=== PATIENT | female | born 1950 | race Caucasian/White ===

== ENCOUNTER 2021-03-13 12:14 | Emergency (ER) | payer MEDICARE, MEDICAID ==
[2021-03-13 12:51] VITALS: BP 160/98; PULSE 68
[2021-03-13 13:16] LABS: ANION GAP 15.6 mEq/L (7-13); CHLORIDE,CL 97 mmol/L (98-107); SODIUM,NA 135 mmol/L (136-145)
--- NOTE | 2021-03-13 13:38 | CT ---
PROCEDURE INFORMATION: Exam: CT Pelvis Without Contrast; Skeletal Exam date and time: 03/13/2021 12:59 PM Age: 70 years old Clinical indication: Injury or trauma; Fall; Blunt trauma (contusions or hematomas); Bilateral; Hip; Patient HX: Cancer patient. ; Additional info: Fall, bi lateral hip pain and bruising. TECHNIQUE: Imaging protocol: Computed tomography images of the pelvis without contrast. Exam focused on the skeletal structures. Radiation optimization: All CT scans at this facility use at least one of these dose optimization techniques: automated exposure control; mA and/or kV adjustment per patient size (includes targeted exams where dose is matched to clinical indication); or iterative reconstruction. COMPARISON: No relevant prior studies available. FINDINGS: Bladder: There is severe bladder distention. No bladder wall thickening. No pelvic mass. Vasculature: Distal aortoiliac atherosclerotic calcification. No visualized aneurysm. Bones/joints: There is a right femoral neck Garden stage IV fracture with significant cortical offset. The fracture pattern shows complete lateral displacement of the femoral shaft and proximal migration of the femoral shaft relative to the femoral head. There is varus deformity.Right mild joint space narrowing and periarticular spurs. Left advanced joint space narrowing with bone on bone deformity, acetabular and femoral head erosive changes with sclerosis. No left hip fracture. Mild 3.5 mm anteriorly displaced segment 5 sacral fracture L4-L5 moderate degenerative disc disease with minimal L4 anterolisthesis on L5. Soft tissues: Unremarkable. IMPRESSION: 1. Right stage IV femoral neck fracture with significant cortical offset and proximal migration of the femoral shaft. 2. Mild anteriorly displaced segment 5 sacral fracture. 3. 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 4. L4-L5 moderate degenerative disc disease with minimal L4 anterolisthesis. 5. Severe bladder distention. No pelvic soft tissue abnormality or bladder filling defect.
[2021-03-13] MEDS: Potassium Chloride 10 MEQ in Premix Bag 1 BAG IV SCH ×2 (13:46→14:53)
[2021-03-13] MEDS ORDERED: Ondansetron 4 MG/2 ML SDV IVPUSH ONE (14:26)
[2021-03-13] MEDS ORDERED: fentaNYL 100 MCG/2 ML SDV IVPUSH ONE (14:33)
--- NOTE | 2021-03-13 14:52 | EDM.PDOC ---
Scribed by Nathalie Saldaña 03/13/21 [id number] for Maria T Patel MD ED HPI GENERAL MEDICAL PROBLEM - General Chief Complaint: General Stated Complaint: IN BY [facility] Time Seen by Provider: 03/13/21 12:11 Source of Information: Reports: Patient, EMS, EMS Notes Reviewed, RN, RN Notes Reviewed History Limitations: Reports: No Limitations - History of Present Illness INITIAL COMMENTS - FREE TEXT/NARRATIVE: Patient presents to ED by [facility] after being found down. Patient was found on the floor after an apparent fall. Patient denied any fall. Patient notes that she walked her dog earlier in the morning, then sat on a stool to clean out her closet. She then notes that she did stand up and tripped over the stool. Patient denied any injury initially, but on further questioning did admit to more pain in her hip. Patient has chronic hip pain for which she follows with her PCP. No numbness or tingling in her legs. Patient has not tried walking since the fall. The daughter arrives and states her mother has worsening dementia, most likely secondary to small cell lung. She is scheduled for a head CT in the future, but notes that this behavior is more severe than what they have noticed before as far as being confused. Onset: Today Duration: Constant Location: Reports: Other (hipis) Quality: Reports: Ache Severity: Severe Improves with: Reports: None Worsens with: Reports: None Associated Symptoms: Reports: No Other Symptoms - Related Data Allergies Allergy/AdvReac Type Severity Reaction Status Date / Time No Known Allergies Allergy Verified 03/13/21 11:59 Home Meds: Home Meds Gabapentin [Neurontin] 1 tab PO TID 04/07/16 [History] Levothyroxine 1 tab PO DAILY 04/07/16 [History] Meloxicam 1 tab PO DAILY 04/07/16 [History] Sertraline [Zoloft] 75 mg PO BEDTIME 03/13/21 [History] fentaNYL [Fentanyl] 1 each TD DAILY 03/13/21 [History] traMADol [Ultram] 50 mg PO ASDIRECTED 03/13/21 [History] Past Medical History Endocrine/Metabolic History: Reports: Hyperthyroidism - Infectious Disease History Infectious Disease History: Reports: Measles, Mumps - Past Surgical History Musculoskeletal Surgical History: Reports: Other (See Below) Social & Family History - Family History Family Medical History: No Pertinent Family History ED ROS GENERAL - Review of Systems Review Of Systems: Comprehensive ROS is negative, except as noted in HPI. ED EXAM, GENERAL - Physical Exam Exam: See Below Exam Limited By: Altered Mental Status General Appearance: Alert, No Apparent Distress Eye Exam: Bilateral Eye: Normal Inspection Ears: Normal External Exam, Normal TMs Ear Exam: Bilateral Ear: TM normal Nose: Normal Inspection, No Blood Throat/Mouth: Normal Inspection, Normal Voice, No Airway Compromise Head: Atraumatic, Normocephalic Neck: Normal Inspection, Supple, Non-Tender, Full Range of Motion Respiratory/Chest: No Respiratory Distress, Lungs Clear, Normal Breath Sounds, No Accessory Muscle Use Cardiovascular: Normal Peripheral Pulses, Regular Rate, Rhythm, No Murmur GI/Abdominal: Normal Bowel Sounds, Soft, No Distention (Female) Exam: Deferred Rectal (Female) Exam: Deferred Back Exam: Normal Inspection Extremities: Leg Pain (bilateral hip pain R>L. Pain with internal rotation of the right hip radiating into the groin. Bruising noted over left hip. Pelvis stable. Neurovascularly intact in bilateral lower extremities and feet. ) Neurological: Confused Psychiatric: Normal Affect, Normal Mood Skin Exam: Warm, Dry Course - Vital Signs Last Recorded V/S: Last Vital Signs Temp 97.8 F 03/13/21 12:46 Pulse 68 03/13/21 12:46 Resp 20 03/13/21 12:46 BP 160/98 H 03/13/21 12:46 Pulse Ox 95 03/13/21 12:46 - Orders/Labs/Meds Orders: Active Orders 24 hr Category Date Time Status Urinary Catheter Assessment [RC] ASDIRECTED Care 03/13/21 14:14 Active Urinary Catheter Insertion [Insert Urinary Catheter] [ Care 03/13/21 14:15 Ordered OM.PC] Q24H CULTURE BLOOD [BC] Stat Lab 03/13/21 12:50 Received CULTURE BLOOD [BC] Stat Lab 03/13/21 13:10 Received Potassium Chloride [KCl in Water 10 MEQ/100 ML] 10 meq Med 03/13/21 13:45 Active Premix Bag 1 bag IV Q2H Blood Culture x2 Reflex Set [OM.PC] Stat Oth 03/13/21 12:54 Ordered Medication Orders Potassium Chloride 10 meq/ (Premix) 100 mls @ 100 mls/hr IV Q2H MENG Stop: 03/13/21 20:44 Last Admin: 03/13/21 13:46 Dose: 100 mls/hr Documented by: ANNITA Labs: Laboratory Tests 03/13/21 03/13/21 03/13/21 Range/Units 12:50 12:50 12:50 WBC 13.4 H (5.0-10.0) 10^3/uL RBC 3.94 L (4.2-5.4) 10^6/uL Hgb 13.3 (12.0-16.0) g/dL Hct 37.9 (37.0-47.0) % MCV 96.2 (80-100) fL MCH 33.8 (27.0-34.0) pg MCHC 35.1 H (33.0-35.0) g/dL Plt Count 195 (150-450) 10^3/uL Neut % (Auto) 92.0 H (42.2-75.2) % Lymph % (Auto) 2.7 L (20.5-50.1) % Bucks % (Auto) 5.2 (2-8) % Eos % (Auto) 0.0 L (1.0-3.0) % Baso % (Auto) 0.1 (0.0-1.0) % Sodium 135 L (136-145) mmol/L Potassium 2.6 L (3.5-5.1) mmol/L Chloride 97 L (98-107) mmol/L Carbon Dioxide 25 (21-32) mmol/L Anion Gap 15.6 H (7-13) mEq/L BUN 9 (7-18) mg/dL Creatinine 0.73 (0.55-1.02) mg/dL Est Cr Clr Drug Dosing 57.52 mL/min Estimated GFR (MDRD) > 60 BUN/Creatinine Ratio 12.3 (No establ ref range) Glucose 114 H (70-99) mg/dL Lactic Acid 1.8 (0.4-2.0) mmol/L Calcium 8.3 L (8.5-10.1) mg/dL Total Bilirubin 1.1 H (0.2-1.0) mg/dL AST 128 H (15-37) U/L ALT 52 (14-59) U/L Alkaline Phosphatase 90 (46-116) U/L Total Protein 7.0 (6.4-8.2) g/dL Albumin 3.5 (3.4-5.0) g/dL Globulin 3.5 Albumin/Globulin Ratio 1.0 Urine Color (YELLOW) Urine Appearance (CLEAR) Urine pH (5.0-9.0) Ur Specific [place] (1.005-1.030) Urine Protein (NEGATIVE) Urine Glucose (UA) (NEGATIVE) Urine Ketones (NEGATIVE) Urine Occult Blood (NEGATIVE) Urine Nitrite (NEGATIVE) Urine Bilirubin (NEGATIVE) Urine Urobilinogen (0.2-1.0) mg/dL Ur Leukocyte Esterase (NEGATIVE) Urine RBC /HPF Urine WBC (0-5/HPF) /HPF Ur Epithelial Cells (NOT SEEN) /HPF Amorphous Sediment (NOT SEEN) /HPF Urine Bacteria (0-FEW/HPF) /HPF Urine Mucus (NOT SEEN) /LPF 03/13/21 Range/Units 12:52 WBC (5.0-10.0) 10^3/uL RBC (4.2-5.4) 10^6/uL Hgb (12.0-16.0) g/dL Hct (37.0-47.0) % MCV (80-100) fL MCH (27.0-34.0) pg MCHC (33.0-35.0) g/dL Plt Count (150-450) 10^3/uL Neut % (Auto) (42.2-75.2) % Lymph % (Auto) (20.5-50.1) % Bucks % (Auto) (2-8) % Eos % (Auto) (1.0-3.0) % Baso % (Auto) (0.0-1.0) % Sodium (136-145) mmol/L Potassium (3.5-5.1) mmol/L Chloride (98-107) mmol/L Carbon Dioxide (21-32) mmol/L Anion Gap (7-13) mEq/L BUN (7-18) mg/dL Creatinine (0.55-1.02) mg/dL Est Cr Clr Drug Dosing mL/min Estimated GFR (MDRD) BUN/Creatinine Ratio (No establ ref range) Glucose (70-99) mg/dL Lactic Acid (0.4-2.0) mmol/L Calcium (8.5-10.1) mg/dL Total Bilirubin (0.2-1.0) mg/dL AST (15-37) U/L ALT (14-59) U/L Alkaline Phosphatase (46-116) U/L Total Protein (6.4-8.2) g/dL Albumin (3.4-5.0) g/dL Globulin Albumin/Globulin Ratio Urine Color Yellow (YELLOW) Urine Appearance Clear (CLEAR) Urine pH 7.0 (5.0-9.0) Ur Specific [place] 1.025 (1.005-1.030) Urine Protein 100 H (NEGATIVE) Urine Glucose (UA) Negative (NEGATIVE) Urine Ketones Negative (NEGATIVE) Urine Occult Blood Small H (NEGATIVE) Urine Nitrite Negative (NEGATIVE) Urine Bilirubin Negative (NEGATIVE) Urine Urobilinogen 0.2 (0.2-1.0) mg/dL Ur Leukocyte Esterase Negative (NEGATIVE) Urine RBC 20-30 H /HPF Urine WBC 0-5 (0-5/HPF) /HPF Ur Epithelial Cells Occasional (NOT SEEN) /HPF Amorphous Sediment Occasional (NOT SEEN) /HPF Urine Bacteria Rare (0-FEW/HPF) /HPF Urine Mucus Rare (NOT SEEN) /LPF Meds: Medications Generic Name Dose Route Start Last Admin Trade Name Freq PRN Reason Stop Dose Admin Potassium Chloride 10 meq/ 100 mls @ 100 mls/hr 03/13/21 13:45 03/13/21 13:46 Premix IV 03/13/21 20:44 100 mls/hr Q2H MENG Administration Discontinued Medications Generic Name Dose Route Start Last Admin Trade Name Freq PRN Reason Stop Dose Admin Fentanyl 50 mcg 03/13/21 14:33 03/13/21 14:35 Fentanyl 100 Mcg/2 Ml Sdv IVPUSH 03/13/21 14:34 50 mcg ONETIME ONE Administration Ondansetron HCl 4 mg 03/13/21 14:26 03/13/21 14:33 Ondansetron 4 Mg/2 Ml Sdv IVPUSH 03/13/21 14:27 4 mg ONETIME ONE Administration - Radiology Interpretation Free Text/Narrative:: CT pelvis: Right stage IV femoral neck fracture with significant cortical offset and proximal migration of the femoral shaft. Mild anteriorly displaced segment 5 sacral fracture. 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 L4-L5 moderate degenerative disc disease with minimal L4 anterolisthesis. Severe bladder distention. No pelvic soft tissue abnormal or bladder filling defect. See rad report. - Re-Assessments/Exams Free Text/Narrative Re-Assessment/Exam: [facility] called and Dr. Salazar in ER is accepting. Departure - Departure Time of Disposition: 14:44 Disposition: DC/Tfer to Acute Hospital 02 Condition: Serious Clinical Impression: Displaced fracture of right femoral neck, Hypokalemia Altered mental status Qualifiers: Altered mental status type: delirium Qualified Code(s): R41.0 - Disorientation, unspecified - Discharge Information *PRESCRIPTION DRUG MONITORING PROGRAM REVIEWED*: Not Applicable *COPY OF PRESCRIPTION DRUG MONITORING REPORT IN PATIENT SREE: Not Applicable Forms: ED Department Discharge, Interfacility Transfer EMTALA Sepsis Event Note (ED) - Focused Exam Vital Signs: Vital Signs Temp Pulse Resp BP Pulse Ox 03/13/21 12:46 97.8 F 68 20 160/98 H 95 - My Orders Last 24 Hours: My Active Orders 03/13/21 12:50 CULTURE BLOOD [BC] Stat 03/13/21 12:54 Blood Culture x2 Reflex Set [OM.PC] Stat 03/13/21 13:10 CULTURE BLOOD [BC] Stat 03/13/21 13:45 Potassium Chloride [KCl in Water 10 MEQ/100 ML] 10 meq Premix Bag 1 bag IV Q2H 03/13/21 14:14 Urinary Catheter Assessment [RC] ASDIRECTED 03/13/21 14:15 Urinary Catheter Insertion [Insert Urinary Catheter] [OM.PC] Q24H - Assessment/Plan Last 24 Hours: My Active Orders 03/13/21 12:50 CULTURE BLOOD [BC] Stat 03/13/21 12:54 Blood Culture x2 Reflex Set [OM.PC] Stat 03/13/21 13:10 CULTURE BLOOD [BC] Stat 03/13/21 13:45 Potassium Chloride [KCl in Water 10 MEQ/100 ML] 10 meq Premix Bag 1 bag IV Q2H 03/13/21 14:14 Urinary Catheter Assessment [RC] ASDIRECTED 03/13/21 14:15 Urinary Catheter Insertion [Insert Urinary Catheter] [OM.PC] Q24H I have read and agree with the documentation that has been completed regarding this visit. By signing this record, I attest that the documentation was completed in my physical presence and is an accurate record of the encounter.
== END 2021-03-13 15:25 ==
LOC: DL.ED 12:14
DX: S72.091A Other fracture of head and neck of right femur, initial encounter for closed fracture (principal); E87.6 Hypokalemia; R41.0 Disorientation, unspecified; E03.9 Hypothyroidism, unspecified; Z79.899 Other long term (current) drug therapy; W18.39XA Other fall on same level, initial encounter
CPT/HCPCS: 36415; 51702; 72192; 80053; 81001; 83605; 85025; 87040; 96365; 96366; 96375; 99285; J2405; J3010; J3480